=== PATIENT | female | born 1975 | race Caucasian/White ===

== ENCOUNTER 2022-02-24 13:34 | Emergency (ER) | payer BC, MEDICARE, OTHER ==
[~2022-02-24] VITALS: Ht 154.9 cm; Wt 59.0 kg
[2022-02-24 13:35] VITALS: BP_SYST 134
--- NOTE | 2022-02-24 13:35 | NUR ---
BROUGHT IN BY [facility] AND PLACED IN ROOM #8, REPORT GIVEN TO MARY
[2022-02-24] MEDS ORDERED: KETOROLAC TROMETHAMINE 60 MG/2 ML VIAL IM ONE (13:45)
--- NOTE | 2022-02-24 13:45 | NUR ---
ER Dr. ESTRADA at bedside examining patient.
--- NOTE | 2022-02-24 13:48 | NUR ---
EKG performed at BS by EMT. Physician given copy of EKG for review.
[2022-02-24] MEDS ORDERED: NAPR-690 PO (14:17)
--- NOTE | 2022-02-24 14:22 | NUR ---
DR ESTRADA BEDSIDE FOLLOWING UP EXAM WITH PT.
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
[2022-02-24 14:36] VITALS: BP_SYST 135
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
== END 2022-02-24 16:13 | disposition home or self-care (01) ==
LOC: SED 13:34
DX: S20.219A Contusion of unspecified front wall of thorax, initial encounter (principal); V49.9XXA Car occupant (driver) (passenger) injured in unspecified traffic accident, initial encounter; W22.19XA Striking against or struck by other automobile airbag, initial encounter; Y93.89 Activity, other specified; Y92.89 Other specified places as the place of occurrence of the external cause; Y99.8 Other external cause status
CPT/HCPCS: 71045; 96372; 99283; J1885